=== PATIENT | male | born 1945 | race Caucasian/White ===

== ENCOUNTER 2018-08-30 13:23 | Emergency (ER) | payer MEDICARE ==
[2018-08-30 14:41] LABS: ADD MAN DIFF? NO
[2018-08-30 14:43] LABS: WHITE BLOOD COUNT 5.4 10^3/ul (4.8-10.8)
[2018-08-30 14:43] LABS: ABNORMAL IP MESSAGE 1; BASOPHILS % 0.4 % (0.0-2.0); EOSINOPHILS # 0.1 10^3/ul (0.0-0.5); HEMATOCRIT 29.5 % (42.0-52.0); HEMOGLOBIN 10.4 g/dl (14.0-18.0); LYMPHOCYTES # 0.6 10^3/ul (0.8-2.9); LYMPHOCYTES % 10.5 % (15.0-51.0); MEAN CORPUSCULAR HEMOGLOBIN 32.3 pg (29.0-33.0); MEAN CORPUSCULAR HGB CONC 35.3 g/dl (32.0-37.0); MEAN CORPUSCULAR VOLUME 91.6 fl (82.0-101.0); MEAN PLATELET VOLUME 8.5 fl (7.4-10.4); MONOCYTE # 0.5 10^3/ul (0.3-0.9); MONOCYTES % 8.9 % (0.0-11.0); NEUTROPHIL # 4.2 10^3/ul (1.6-7.5); NEUTROPHILS % 77.8 % (39.0-77.0); PLATELET COUNT 283 10^3/UL (140-415); POSITIVE DIFF @See below; RED BLOOD COUNT 3.22 10^6/ul (4.70-6.10); RED CELL DISTRIBUTION WIDTH 11.1 % (11.5-14.5)
[2018-08-30 15:00] LABS: ANION GAP 9 (5-13); BLOOD UREA NITROGEN 9 mg/dl (7-20); CALCIUM 8.6 mg/dl (8.4-10.2); CARBON DIOXIDE 28 mmol/L (21-31); CHLORIDE 88 mmol/L (97-110); CREATININE 0.78 mg/dl (0.61-1.24); GLUCOSE 113 mg/dl (70-220); SODIUM 125 mmol/L (135-144)
[2018-08-30 15:07] LABS: POTASSIUM 3.9 mmol/L (3.5-5.1)
[2018-08-30 15:12] LABS: TROPONIN-I < 0.012 ng/ml (0.000-0.120)
[2018-08-30] MEDS ORDERED: ALBUTEROL 0.083% (NEB) 2.5 MG/3 ML AMP HHN (17:00)
[2018-08-30] MEDS ORDERED: ONDANSETRON 4 MG INJ IV (17:30)
[2018-08-30] MEDS ORDERED: NACL 0.9% 3 ML SYG IV (17:30)
[2018-08-30] MEDS ORDERED: ACETAMINOPHEN 325 MG TAB PO (17:30)
[2018-08-30] MEDS: SOD CHLORIDE 0.9% 1,000 ML IV (17:58)
[2018-08-30 18:30] LABS: HEMOGLOBIN A1C 4.9 % (0-5.9)
[2018-08-30] MEDS: LACTOBACILLUS RHAMNOSUS CAP PO (18:55)
[2018-08-30 19:26] LABS: IRON 135 ug/dl (35-150)
[2018-08-30 19:36] LABS: % IRON SATURATION 55 % SAT (22-52); TOTAL IRON BINDING CAPACITY 245 ug/dl (241-421)
[2018-08-30] MEDS ORDERED: ALBUTEROL/IPRATROPIUM (NEB) 3 ML AMP NEB ×2 (20:00)
[2018-08-30] MEDS: AMLODIPINE 5 MG TAB PO (20:38)
[2018-08-30] MEDS: TAMSULOSIN (SR) 0.4 MG CAP PO (20:38)
[2018-08-31] MEDS: LORAZEPAM 2 MG INJ IV (00:37)
[2018-08-31] MEDS: SOD CHLORIDE 0.9% 1,000 ML IV (03:01)
[2018-08-31 05:43] LABS: ADD MAN DIFF? NO
[2018-08-31 05:47] LABS: BASOPHILS % 0.7 % (0.0-2.0); EOSINOPHILS # 0.2 10^3/ul (0.0-0.5); EOSINOPHILS % 5.5 % (0.0-7.0); HEMATOCRIT 26.3 % (42.0-52.0); HEMOGLOBIN 9.4 g/dl (14.0-18.0); LYMPHOCYTES # 0.9 10^3/ul (0.8-2.9); LYMPHOCYTES % 21.3 % (15.0-51.0); MEAN CORPUSCULAR HEMOGLOBIN 31.8 pg (29.0-33.0); MEAN CORPUSCULAR HGB CONC 35.7 g/dl (32.0-37.0); MEAN CORPUSCULAR VOLUME 88.9 fl (82.0-101.0); MEAN PLATELET VOLUME 8.7 fl (7.4-10.4); MONOCYTE # 0.6 10^3/ul (0.3-0.9); MONOCYTES % 13.9 % (0.0-11.0); NEUTROPHIL # 2.4 10^3/ul (1.6-7.5); NEUTROPHILS % 58.4 % (39.0-77.0); PLATELET COUNT 252 10^3/UL (140-415); RED BLOOD COUNT 2.96 10^6/ul (4.70-6.10); RED CELL DISTRIBUTION WIDTH 10.9 % (11.5-14.5)
[2018-08-31 06:22] LABS: ANION GAP 6 (5-13); BLOOD UREA NITROGEN 8 mg/dl (7-20); CALCIUM 8.6 mg/dl (8.4-10.2); CARBON DIOXIDE 29 mmol/L (21-31); CHLORIDE 96 mmol/L (97-110); CREATININE 0.67 mg/dl (0.61-1.24); GLUCOSE 98 mg/dl (70-220); MAGNESIUM 1.7 mg/dl (1.7-2.5); POTASSIUM 3.3 mmol/L (3.5-5.1); SODIUM 131 mmol/L (135-144)
[2018-08-31] MEDS: LACTOBACILLUS RHAMNOSUS CAP PO ×2 (07:46→11:22)
[2018-08-31] MEDS ORDERED: NON-FORMULARY/PATIENT OWN MED (Valsartan* (Diovan*) 320 MG) PO (09:00)
[2018-08-31] MEDS ORDERED: DUTASTERIDE 0.5 MG CAP PO (09:00)
[2018-08-31] MEDS: ASPIRIN (EC) 81 MG TAB PO (10:44)
[2018-08-31] MEDS: MAGNESIUM SULFATE 2 GM/50 ML 50 ML IVPB (10:44)
[2018-08-31] MEDS: POTASSIUM CHLORIDE (SR) 20 MEQ TAB PO (10:45)
[2018-08-31] MEDS: LOSARTAN 50 MG TAB PO (10:46)
[2018-08-31] MEDS: AMLODIPINE 5 MG TAB PO (10:47)
[2018-08-31] MEDS: DUTASTERIDE 0.5 MG CAP PO (10:47)
== END 2018-08-31 15:15 | disposition left against medical advice (07) ==
LOC: E/R 13:23
DX: E87.1 Hypo-osmolality and hyponatremia (principal); D64.9 Anemia, unspecified; I10 Essential (primary) hypertension; Z79.82 Long term (current) use of aspirin
CPT/HCPCS: 36415; 70450; 80048; 82962; 83036; 83540; 83735; 84443; 84484; 85025; 93005; 93306; 96374; 96375; 99285-25